=== PATIENT | female | born 1970 | race Caucasian/White ===

== ENCOUNTER 2021-05-27 09:31 | Inpatient (IN) | payer OTHER ==
[~2021-05-27] VITALS: Ht 154.9 cm; Wt 79.5 kg
[2021-05-27 09:40] VITALS: BP 112/49
[2021-05-27] MEDS ORDERED: PROZAC20 M1 PO (09:45)
[2021-05-27] MEDS ORDERED: MAGNESIUM250 M1 PO (09:45)
[2021-05-27] MEDS ORDERED: INDERAL LA120 M1 PO (09:45)
[2021-05-27] MEDS ORDERED: NEURONTIN 300M300 M2 PO (09:45)
[2021-05-27] MEDS ORDERED: BIOTIN0.5 GM PO (09:46)
[2021-05-27] MEDS ORDERED: FLEXERIL PO (09:46)
[2021-05-27] MEDS ORDERED: B COMPLEX1 EACH PO (09:46)
[2021-05-27] MEDS ORDERED: SUPER THERAVIT1 EACH PO (09:46)
[2021-05-27 13:54] LABS: URINE BILIRUBIN NEGATIVE (Negative); URINE BLOOD NEGATIVE (Negative); URINE CLARITY CLEAR; URINE COLOR YELLOW; URINE GLUCOSE-RANDOM NEGATIVE (Negative); URINE KETONES TRACE (Negative); URINE LEUKOCYTES-REFLEX NEGATIVE (Negative); URINE NITRITE-REFLEX NEGATIVE (Negative); URINE PROTEIN NEGATIVE (Negative); URINE UROBILINOGEN 0.2 E.U./dl (0.2-1.0)
[2021-05-27 14:10] LABS: ABSOLUTE BASOPHILS 0.1 thou/uL (0.0-0.2); ABSOLUTE EOSINOPHILS 0.2 thou/uL (0.0-0.7); ABSOLUTE LYMPHOCYTES 2.8 thou/uL (0.8-5.3); ABSOLUTE NEUTROPHILS 14.6 thou/uL (1.6-8.1); BASOPHILS 0.4 %; HEMATOCRIT 38.8 % (37.0-47.0); HEMOGLOBIN 13.2 gm/dL (12.0-15.0); LYMPHOCYTES 15.2 %; MCH 27.9 pg (26.0-34.0); MCHC 33.9 g/dL (28.0-37.0); MCV 82.1 fL (80.0-100.0); MONOCYTES 5.4 %; MPV 7.3 fl. (7.2-11.1); NUCLEATED RBCS 0 /100WBC; PLATELET COUNT* 436 thou/uL (150-400); RBC 4.73 mil/uL (4.20-5.00); RDW-CV 13.9 % (10.5-14.5); WBC 18.7 thou/uL (4.0-11.0)
[2021-05-27 14:15] LABS: CALCIUM 8.9 mg/dL (8.5-10.1); CREATININE 0.7 mg/dL (0.6-1.3)
[2021-05-27 14:20] LABS: ALBUMIN 3.5 g/dL (3.4-5.0); TOTAL BILIRUBIN 0.9 mg/dL (<0.1-1.0); TOTAL PROTEIN 8.1 g/dL (6.4-8.2)
--- NOTE | 2021-05-27 16:21 | EKG ---
[place] [address] ELECTROCARDIOGRAM REPORT Name: DESMOND BABCOCK Room: [place] [address] ADM IN ..#: [id number] Admission: 05/27/21 Attend Phys: Kevin Liriano Discharge: Date of : 74 Date of Service: 05/27/21 1423 Report #: [id number] THIS REPORT FOR: //name// [facility] ED Test Date: 2021-05-27 Test Time: 14:23:16 Pat Name: DESMOND BABCOCK Department: Room: [facility] Gender: F Property Manager: YURY : 1970 Requested By: James Hoover Order Number: [id number] MD: Hal Amador Measurements Intervals [place] Rate: 56 P: 41 DC: 151 QRS: -2 QRSD: 98 T: 10 QT: 449 QTc: 434 Interpretive Statements Sinus bradycardia nonspecifci T wave changes Borderline low voltage, extremity leads No previous ECG available for comparison Electronically Signed On 05-27-2021 16:21:31 CDT by Hal Amador [email or web address] <ELECTRONICALLY SIGNED> By: Hal Amador MD, [facility] 05/27/21 1621 1423 1423 Hal Amador MD, [facility] /EPI
[2021-05-27 16:23] VITALS: BP 94/48
[2021-05-27 20:00] VITALS: BP 93/61
[2021-05-28] VITALS: BP 111/42
--- NOTE | 2021-05-28 04:41 | NUR ---
PATIENT ASSESSMENT COMPLETED CHARTED. PT ORIENTED TO ROOM/POLICIES AND VERBALIZES UNDERSTANDING. PT WITH THREE ABDOMINAL LAP SITES FROM APPENDECTOMY. SITES ARE CLOSED WITH STERI STRIPS. PT TOLERATING FOOD WELL. FREQUENTLY USED ITEMS AND CALL LIGHT WITHIN REACH. SIDERAILS UPX2. WILL CONTINUE TO MONITOR.
[2021-05-28 04:55] VITALS: BP 96/55
[2021-05-28 08:00] VITALS: BP 108/56
[2021-05-28 10:34] VITALS: BP 108/56
[2021-05-28 11:23] VITALS: BP 108/56
--- NOTE | 2021-05-28 11:24 | NUR ---
PATIENT DISCHARGED AT THIS TIME VIA WHEELCHAIR ACCOMPANIED BY NURSE TO PRIVATE VEHICLE. IV DC'D, COTTON AND TAPE TO SITE. PAIN MEDICATION GIVEN X1. DISCHARGE INSTRUCTIONS REVIEWED. PATIENT ACKNOWLEDGED UNDERSTANDING. ALL QUESTIONS AND CONCERNS ADDRESSED.
--- NOTE | 2021-05-28 17:06 | OP ---
[facility] [address] [place] [address] OPERATIVE REPORT Name: DESMOND BABCOCK Room: [address] IN ..#: [id number] Admission: 05/27/21 Attend Phys: Kevin Sim Discharge: 05/28/21 Date of : 74 Report #: [id number] THIS REPORT FOR: cc: FAM - No family physician/PCP FAM - No family physician/PCP Kevin Sim MD ~ DATE OF SURGERY: 05/27/2021 PREOPERATIVE DIAGNOSIS: Acute appendicitis. POSTOPERATIVE DIAGNOSIS: Acute appendicitis. OPERATION: Laparoscopic appendectomy. SURGEON: Kevin Sim MD. ANESTHESIA: General. ESTIMATED BLOOD LOSS: Minimal. SPECIMENS: Appendix. DESCRIPTION OF PROCEDURE: After informed consent was obtained, the patient was brought to the operating room and placed supine. SCDs were placed and working, preoperative antibiotics were administered, general anesthesia was induced. The abdomen was prepped and draped in the usual sterile fashion. A 10 mm incision was made below the umbilicus. Fascia was incised and a trocar was placed. Pneumoperitoneum was established. The right upper quadrant and left lower quadrant 5 mm trocars were placed. The appendix was grasped and retracted anteriorly. The mesoappendix was ligated with a LigaSure device. The base of the appendix was then ligated using the PDS Endoloop. The appendix was cut and placed into an Endopouch. The ports were then removed under direct vision. The fascia was closed with a [id number] 0 Vicryl. Skin was closed with 4-0 Monocryl. Incisions were dressed with Steri-Strips. COMPLICATIONS: None. DISPOSITION: The patient was taken to recovery in satisfactory condition. <ELECTRONICALLY SIGNED> By: Kevin Sim MD 05/28/21 1706 1727 [id number] Sim MD /nt
== END 2021-05-28 11:30 | disposition home or self-care (01) | DRG 343 ==
LOC: M.ERS 09:31 → M.TBA-ER 15:56 → M.2W 20:28
PROVIDERS: Emergency Medicine Emergency Medical Services; ADMIT Surgery; ATTEND Surgery
PROC: 0DTJ4ZZ Resection of Appendix, Percutaneous Endoscopic Approach (ICD-10-PCS; principal; 2021-05-27)
DX: K35.80 Unspecified acute appendicitis (principal); F32.9 Major depressive disorder, single episode, unspecified; Z20.822 Contact with and (suspected) exposure to COVID-19; F17.210 Nicotine dependence, cigarettes, uncomplicated; Z79.899 Other long term (current) drug therapy